=== PATIENT | male | born 1975 | race Two or more races ===

== ENCOUNTER 2018-09-27 21:59 | Emergency (ER) | payer BC, OTHER ==
[~2018-09-27] VITALS: Ht 165.1 cm; Wt 103.1 kg
[2018-09-27 22:03] VITALS: BP 143/91
== END 2018-09-27 23:59 | disposition home or self-care (01) ==
LOC: ED 23:53
DX: L02.31 Cutaneous abscess of buttock (principal)
CPT/HCPCS: 99283